=== PATIENT | female | born 1950 | race Caucasian/White ===

== ENCOUNTER 2019-04-26 13:47 | Emergency (ER) | payer OTHER ==
--- NOTE | 2019-04-26 14:10 | RAD REPORT ---
EXAM DESCRIPTION: CT - Ct Stroke Brain Wo Cont - 04/26/2019 2:03 pm CLINICAL HISTORY: Dizziness and ataxia COMPARISON: December 24, 2018 TECHNIQUE: Computed axial tomography of the head was obtained. All CT scans are performed using dose optimization technique as appropriate and may include automated exposure control or mA/KV adjustment according to patient size. FINDINGS: An intracranial bleed is not seen . The ventricles are normal in caliber. No extra-axial fluid collection is noted. Fluid within the sinuses/ mastoids is not seen. IMPRESSION: No acute intracranial abnormality is seen. If patient's symptoms persist MRI of the bra in would be recommended. Porsche of the emergency room was notified at 2:05 p.m. April 26, 2019
[2019-04-26 14:16] LABS: Absolute Lymphocytes (CBC) 1.5 K/uL (0.7-4.9); Basophils % 0.7 % (0-1.3); Hematocrit 50.4 % (36.0-45.0); Lymphocytes % 18.8 % (15.3-44.8); MPV 10.5 fL (7.6-11.3)
[2019-04-26] MEDS ORDERED: ONDANSETRON 4 MG/2 ML VIAL ONE (14:22)
[2019-04-26] MEDS ORDERED: DIAZEPAM 10 MG/2 ML INJ SYRINGE ONE (14:22)
[2019-04-26] MEDS ORDERED: MECLIZINE HCL 12.5 MG TAB ONE (14:22)
[2019-04-26] MEDS ORDERED: NA CHLORIDE 0.9% 500 ML ONE (14:22)
[2019-04-26] MEDS ORDERED: FAMOTIDINE 20 MG/2 ML VIAL IV ONE (14:23)
[2019-04-26 14:25] LABS: Protime INR 0.92
[2019-04-26 14:29] LABS: Potassium 3.6 mmol/L (3.5-5.1)
--- NOTE | 2019-04-26 14:33 | RAD REPORT ---
EXAM DESCRIPTION: Kerri Single View04/26/2019 2:26 pm CLINICAL HISTORY: Hypertension COMPARISON: none FINDINGS: The lungs appear clear of acute infiltrate. The heart is normal size Calcified granulomas present the left lung. Lungs are hyperaerated IMPRESSION: No acute abnormalities displayed
--- NOTE | 2019-04-26 15:57 | RAD REPORT ---
EXAM DESCRIPTION: MRI - Brain Wo Cont - 04/26/2019 3:22 pm CLINICAL HISTORY: Unsteady gait, severe dizziness, nausea and vomiting weakness, stroke-like symptom s COMPARISON: CT head same date TECHNIQUE: Sagittal T1-weighted images were obtained along with axial PD, heavily T2-weighted and T2 -FLAIR images. Axial DWI and ADC mapping sequences were also obtained along with coronal heavily T2-w eighted images. FINDINGS: No intracranial hemorrhage, mass or acute infarction. There is no edema or shift of midlin e structures. No extra-axial fluid collections. Bishop-matter/white matter junction is preserved. Signa l voids are seen as a normal finding in the major intracranial vessels. Ventricles are normal. Patien t has minimal atrophy and no measurable chronic ischemic change. No globe or orbital content abnormality. Left deviation of the nasal septum noted. Mastoid air cells and paranasal sinuses are clear. IMPRESSION: Negative non-contrast MRI of the Brain for acute or significant finding.
--- NOTE | 2019-04-26 17:13 | ER ---
Nurse's Notes [facility] Name: Isabel Yin Age: 68 yrs Sex: Female : 1950 Arrival Date: 04/26/2019 Time: 13:48 Bed 5 Private MD: Diagnosis: Aural vertigo, unspecified ear;Other peripheral vertigo, bilateral Presentation: 04/26 13:51 Presenting complaint: Severe dizziness, unsteady gait, and nausea z 1 hr. Vomiting in triage. Transition of care: patient was not received from another setting of care. Onset of symptoms was April 26, 2019 at 12:45. Risk Assessment: Do you want to hurt yourself or someone else? Patient reports no desire to harm self or others. Care prior to arrival: None. 13:51 Method Of Arrival: Wheelchair 13:51 Acuity: GABO 2 13:51 Initial Sepsis Screen: Does the patient meet any 2 criteria? No. Patient's initial sepsis screen is negative. Does the patient have a suspected source of infection? No. Patient's initial sepsis screen is negative. Triage Assessment: 14:10 General: Appears distressed, comfortable, slender, Behavior is cooperative, appropriate bp for age, agitated, anxious. Pain: Denies pain. EENT: No deficits noted. Neuro: Level of Consciousness is awake, alert, obeys commands, Oriented to person, place, time, situation, Appropriate for age Reports dizziness. Cardiovascular: No deficits noted. Respiratory: Airway is patent Respiratory effort is even, unlabored, Respiratory pattern is regular, symmetrical. GI: No signs and/or symptoms were reported involving the gastrointestinal system. : No signs and/or symptoms were reported regarding the genitourinary system. Derm: No deficits noted. Musculoskeletal: No deficits noted. Historical: - Allergies: 13:54 Sulfa (Sulfonamide Antibiotics); hb - Home Meds: 13:54 Aspirin Oral [Active]; hb 14:18 Aricept 5 mg Oral tab 1 tab once daily [Active]; lisinopril-hydrochlorothiazide 10-12.5 hb mg oral tab 1 tab once daily [Active]; - PMHx: 13:54 Hypertension; hb - Immunization history:: Adult Immunizations up to date. - Social history:: Smoking status: Patient uses tobacco products, smokes one pack cigarettes per day. - Ebola Screening: : No symptoms or risks identified at this time. Screenin:13 Abuse screen: Denies threats or abuse. Denies injuries from another. Nutritional bp screening: No deficits noted. Tuberculosis screening: No symptoms or risk factors identified. VAN Screening: Arm Drift: Patient shows no arm weakness. Visual Disturbance: No visual disturbance noted. Aphasia: No aphasia noted. Neglect: No neglect noted. Fall Risk No fall in past 12 months (0 pts). No secondary diagnosis (0 pts). IV access (20 points). Ambulatory Aid- None/Bed Rest/Nurse Assist (0 pts). Gait- Impaired (20 pts.). Mental Status- Oriented to own ability (0 pts). Total Hernandez Fall Scale indicates Low Risk Score (25-44 pts). Fall prevention measures have been instituted. Side Rails Up X 2 Placed close to Nursing Station Frequent Obs/Assesments occuring Family Present and informed to notify staff if they need to leave bedside As available Patient and Family Educated on Fall Prevention Program and strategies. 14:33 The patient has not been NPO before screening. The patient is alert, able to follow bp commands. The patient does not exhibit slurred or garbled speech The patient is not exhibiting difficulty speaking. The patient does not exhibit difficulty understanding words. The patient is able to swallow own secretions with no drooling or need for suction. Patient tolerated one teaspoon of water. No drooling, immediate coughing, gurgling, or clearing of the throat was noted. The patient tolerated 90mL of water. No drooling, immediate coughing, gurgling, or clearing of the throat was noted. The patient passed the bedside swallow screening. Oral medications may be given as ordered. Contact Physician for further diet orders. Assessment: 13:56 Reassessment: CODE STROKE CALLED, PT TO CT VIA WHEELCHAIR WITH KAYLAN GARCIA. hb 14:13 General: PT RETURNED FROM CT. bp 14:45 Reassessment: PT TO MRI. bp Vital Signs: 13:52 BP 184 / 82; Pulse 106; Resp 16; Temp 97.9; Pulse Ox 100% on R/A; Weight 48.99 kg; hb Height 5 ft. 4 in. (162.56 cm); Pain 0/10; 15:03 BP 143 / 74; Pulse 72; Resp 17; Pulse Ox 94% ; bp 16:18 BP 161 / 73; Pulse 64; Resp 16; Pulse Ox 99% on R/A; aj 13:52 Body Mass Index 18.54 (48.99 kg, 162.56 cm) hb NIH Stroke Scale Scores: 14:13 NIHSS Score: 0 bp ED Course: 13:48 Patient arrived in ED. as 13:52 Triage completed. hb 13:55 Arm band placed on. hb 13:59 Jeyson Kent MD is Attending Physician. kdr 14:01 Ricardo Boo, RADHA is Primary Nurse. bp 14:05 CT Stroke Brain w/o Contrast In Process Unspecified. EDMS 14:10 Inserted saline lock: 20 gauge in right forearm, using aseptic technique. Blood bp collected. 14:13 Patient has correct armband on for positive identification. Bed in low position. Call bp light in reach. Side rails up X2. Adult w/ patient. 14:22 X-ray completed. Portable x-ray completed in exam room. Patient tolerated procedure ml well. 14:25 Stroke CXR 1 View In Process Unspecified. EDMS 14:57 Patient moved to MRI via stretcher. em2 15:12 Brain Wo Cont In Process Unspecified. EDMS 17:20 No provider procedures requiring assistance completed. IV discontinued, intact, aj bleeding controlled, No redness/swelling at site. Pressure dressing applied. Administered Medications: 14:30 Drug: Meclizine 25 mg Route: PO; bp 14:30 Drug: Valium 5 mg Route: IVP; Site: right antecubital; bp 14:30 Drug: Pepcid 20 mg Route: IVP; Site: right antecubital; bp 14:30 Drug: Zofran 4 mg Route: IVP; Site: right antecubital; bp 14:30 Drug: NS 0.9% 500 ml Route: IV; Rate: bolus; Site: right antecubital; bp Outcome: 17:12 Discharge ordered by . kdr 17:20 Discharged to home ambulatory. aj 17:20 Condition: good 17:20 Discharge instructions given to patient, family, Instructed on discharge instructions, follow up and referral plans. medication usage, Demonstrated understanding of instructions, follow-up care, medications, Prescriptions given X 1. 17:21 Patient left the ED. aj NIH Stroke Scale - NIH Stroke Score Date: 04/26/2019 Time: 14:13 Total Score = 0 1a. Level of Consciousness (LOC) - 0(Alert) 1b. Level of Consciousness (LOC) (Year \T\ Age) - 0(Both) 1c. LOC Commands (Open \T\ Closes Eyes/Alteration Specialist) - 0(Both) 2. Best Gaze (Lateral Gaze Paresis) - 0(Normal) 3. Visual Field Loss - 0(No visual loss) 4. Facial Palsy - 0(Normal) 5a. Left Arm: Motor (10-second hold) - 0(No drift) 5b. Right Arm: Motor (10-second hold) - 0(No drift) 6a. Left Leg: Motor (5-second hold - always test supine) - 0(No drift) 6b. Right Leg: Motor (5-second hold - always test supine) - 0(No drift) 7. Limb Ataxia (finger/nose \T\ heel/allison - test with eyes open) - 0(Absent) 8. Sensory Loss (pinprick arms/legs/face) - 0(Normal) 9. Best Language: Aphasia (description/naming/reading) - 0(No aphasia) 10. Dysarthria (speech clarity - read or repeat words) - 0(Normal) 11. Extinction and Inattention (visual/tactile/auditory/spatial/personal) - 0(No abnormality) Initials: bp Signatures: Dispatcher [employer] Nayla Ford RN RN aj Rittger, Kevin, MD MD [facility] Ori, Kanwal Brooke, Natanael Jane [facility] Kaylan Calle RN RN Ricardo Boo RN RN bp Corrections: (The following items were deleted from the chart) 13:55 13:51 Presenting complaint: Severe dizziness and nausea z 1 hr. Vomiting in hb triage hb 13:55 13:51 Acuity: GABO 3 hb hb 14:18 13:54 Home Meds: Lisinopril Oral; hb hb
--- NOTE | 2019-04-26 17:13 | EDPHYS ---
Physician Documentation [facility] Name: Isabel Yin Age: 68 yrs Sex: Female : 1950 Arrival Date: 04/26/2019 Time: 13:48 Bed 5 Private MD: ED Physician Jeyson Kent HPI: 04/26 18:57 This 68 yrs old Female presents to ER via Wheelchair with complaints of kdr Dizziness. 18:57 The patient presents with dizziness, sense of spinning, vertigo. Onset: The kdr symptoms/episode began/occurred suddenly, just prior to arrival, this morning. Context: occurred at home, occurred while the patient was at rest. Modifying factors: The symptoms are alleviated by holding head still, the symptoms are aggravated by movement of head, standing up, changing position. Associated signs and symptoms: Pertinent positives: ataxia. Severity of symptoms: At their worst the symptoms were. The patient has not experienced similar symptoms in the past. The patient has not recently seen a physician. Historical: - Allergies: 13:54 Sulfa (Sulfonamide Antibiotics); hb - Home Meds: 13:54 Aspirin Oral [Active]; hb 14:18 Aricept 5 mg Oral tab 1 tab once daily [Active]; lisinopril-hydrochlorothiazide 10-12.5 hb mg oral tab 1 tab once daily [Active]; - PMHx: 13:54 Hypertension; hb - Immunization history:: Adult Immunizations up to date. - Social history:: Smoking status: Patient uses tobacco products, smokes one pack cigarettes per day. - Ebola Screening: : No symptoms or risks identified at this time. ROS: 18:57 Constitutional: Negative for fever, chills, and weight loss, Eyes: Negative for injury, kdr pain, redness, and discharge, Neck: Negative for injury, pain, and swelling, Cardiovascular: Negative for chest pain, palpitations, and edema, Respiratory: Negative for shortness of breath, cough, wheezing, and pleuritic chest pain, Abdomen/GI: Negative for abdominal pain, nausea, vomiting, diarrhea, and constipation, Back: Negative for injury and pain, : Negative for injury, bleeding, discharge, and swelling, MS/Extremity: Negative for injury and deformity, Skin: Negative for injury, rash, and discoloration, Psych: Negative for depression, anxiety, suicide ideation, homicidal ideation, and hallucinations, Allergy/Immunology: Negative for hives, rash, and allergies, Endocrine: Negative for neck swelling, polydipsia, polyuria, polyphagia, and marked weight changes, Hematologic/Lymphatic: Negative for swollen nodes, abnormal bleeding, and unusual bruising. 18:57 Neuro: Positive for dizziness, weakness. Exam: 18:57 Constitutional: This is a well developed, well nourished patient who is awake, alert, kdr and in moderate distress. Head/Face: Normocephalic, atraumatic. Eyes: Pupils equal round and reactive to light, extra-ocular motions intact. Lids and lashes normal. Conjunctiva and sclera are non-icteric and not injected. Cornea within normal limits. Periorbital areas with no swelling, redness, or edema. Neck: Trachea midline, no thyromegaly or masses palpated, and no cervical lymphadenopathy. Supple, full range of motion without nuchal rigidity, or vertebral point tenderness. No Meningismus. Chest/axilla: Normal chest wall appearance and motion. Nontender with no deformity. No lesions are appreciated. Cardiovascular: Regular rate and rhythm with a normal S1 and S2. No gallops, murmurs, or rubs. Normal PMI, no JVD. No pulse deficits. Respiratory: Lungs have equal breath sounds bilaterally, clear to auscultation and percussion. No rales, rhonchi or wheezes noted. No increased work of breathing, no retractions or nasal flaring. Abdomen/GI: Soft, non-tender, with normal bowel sounds. No distension or tympany. No guarding or rebound. No evidence of tenderness throughout. Back: No spinal tenderness. No costovertebral tenderness. Full range of motion. Skin: Warm, dry with normal turgor. Normal color with no rashes, no lesions, and no evidence of cellulitis. MS/ Extremity: Pulses equal, no cyanosis. Neurovascular intact. Full, normal range of motion. Psych: Awake, alert, with orientation to person, place and time. Behavior, mood, and affect are within normal limits. 18:57 Neuro: Orientation: Mentation: Memory: Cerebellar function: unable to test, the patient refuses to cooperate, Motor: Sensation: Vital Signs: 13:52 BP 184 / 82; Pulse 106; Resp 16; Temp 97.9; Pulse Ox 100% on R/A; Weight 48.99 kg; hb Height 5 ft. 4 in. (162.56 cm); Pain 0/10; 15:03 BP 143 / 74; Pulse 72; Resp 17; Pulse Ox 94% ; bp 16:18 BP 161 / 73; Pulse 64; Resp 16; Pulse Ox 99% on R/A; aj 13:52 Body Mass Index 18.54 (48.99 kg, 162.56 cm) hb NIH Stroke Scale Scores: 14:13 NIHSS Score: 0 bp MDM: 17:12 Patient medically screened. kdr 18:57 Data reviewed: vital signs, nurses notes, lab test result(s), radiologic studies. kdr Counseling: I had a detailed discussion with the patient and/or guardian regarding: the historical points, exam findings, and any diagnostic results supporting the discharge/admit diagnosis, lab results, radiology results, the need for outpatient follow up. Special discussion: I discussed with the patient/guardian in detail that at this point there is no indication for admission to the hospital. It is understood, however, that if the symptoms persist or worsen the patient needs to return immediately for re-evaluation. 04/26 13:59 Order name: Basic Metabolic Panel; Complete Time: 16: kdr 04/26 13:59 Order name: CBC with Diff; Complete Time: 16: kdr 04/26 13:59 Order name: Protime (+inr); Complete Time: 16: kdr 04/26 13:59 Order name: Ptt, Activated; Complete Time: 16: kdr 04/26 13:59 Order name: CT Stroke Brain w/o Contrast; Complete Time: 16: kdr 04/26 13:59 Order name: Stroke CXR 1 View; Complete Time: 16: kdr 04/26 14:11 Order name: Glucose, Ancillary Testing; Complete Time: 16:07 EDMS 04/26 13:59 Order name: EKG; Complete Time: 14:01 kdr 04/26 13:59 Order name: Accucheck; Complete Time: 14:11 kdr 04/26 13:59 Order name: Cardiac monitoring; Complete Time: 14:11 kdr 04/26 13:59 Order name: EKG - Nurse/Tech; Complete Time: 14:11 kdr 04/26 13:59 Order name: IV Saline Lock; Complete Time: 14:11 kdr 04/26 13:59 Order name: Labs collected and sent; Complete Time: 14:11 kdr 04/26 13:59 Order name: NPO; Complete Time: 14:11 kdr 08 13:59 Order name: O2 Per Protocol; Complete Time: 14:11 kdr 04/26 13:59 Order name: O2 Sat Monitoring; Complete Time: 14:11 kdr 04/26 15:12 Order name: Brain Wo Cont; Complete Time: 16:07 EDMS 04/26 13:59 Order name: Stroke Swallow Screen; Complete Time: 14:33 kdr 04/26 14:00 Order name: Accucheck; Complete Time: 14:08 hb 04/26 14:00 Order name: Cardiac monitoring; Complete Time: 14:08 hb 04/26 14:00 Order name: EKG - Nurse/Tech; Complete Time: 14:08 hb 04/26 14:00 Order name: IV Saline Lock; Complete Time: 14:08 hb 04/26 14:00 Order name: Labs collected and sent; Complete Time: 14:08 hb 04/26 14:00 Order name: NPO; Complete Time: 14:08 hb 04/26 14:00 Order name: O2 Per Protocol; Complete Time: 14:08 hb 04/26 14:00 Order name: O2 Sat Monitoring; Complete Time: 14:09 hb 04/26 14:00 Order name: Stroke Swallow Screen; Complete Time: 14:33 hb Administered Medications: 14:30 Drug: Meclizine 25 mg Route: PO; bp 14:30 Drug: Valium 5 mg Route: IVP; Site: right antecubital; bp 14:30 Drug: Pepcid 20 mg Route: IVP; Site: right antecubital; bp 14:30 Drug: Zofran 4 mg Route: IVP; Site: right antecubital; bp 14:30 Drug: NS 0.9% 500 ml Route: IV; Rate: bolus; Site: right antecubital; bp Disposition: 04/26/19 17:12 Discharged to Home. Impression: Aural vertigo, unspecified ear, Other peripheral vertigo, bilateral. - Condition is Stable. - Discharge Instructions: Dizziness, Vertigo, Dizziness, [id number]. - Prescriptions for Meclizine 25 mg Oral Tablet - take 1 tablet by ORAL route every 8 hours As needed; 30 tablet. - Medication Reconciliation Form, Thank You Letter form. - Follow up: Private Physician; When: 2 - 3 days; Reason: If symptoms return, Further diagnostic work-up, Recheck today's complaints, Continuance of care, Re-evaluation by your physician. - Problem is new. - Symptoms are resolved. NIH Stroke Scale - NIH Stroke Score Date: 04/26/2019 Time: 14:13 Total Score = 0 1a. Level of Consciousness (LOC) - 0(Alert) 1b. Level of Consciousness (LOC) (Year \T\ Age) - 0(Both) 1c. LOC Commands (Open \T\ Closes Eyes/Mill Platform Supervisor) - 0(Both) 2. Best Gaze (Lateral Gaze Paresis) - 0(Normal) 3. Visual Field Loss - 0(No visual loss) 4. Facial Palsy - 0(Normal) 5a. Left Arm: Motor (10-second hold) - 0(No drift) 5b. Right Arm: Motor (10-second hold) - 0(No drift) 6a. Left Leg: Motor (5-second hold - always test supine) - 0(No drift) 6b. Right Leg: Motor (5-second hold - always test supine) - 0(No drift) 7. Limb Ataxia (finger/nose \T\ heel/allison - test with eyes open) - 0(Absent) 8. Sensory Loss (pinprick arms/legs/face) - 0(Normal) 9. Best Language: Aphasia (description/naming/reading) - 0(No aphasia) 10. Dysarthria (speech clarity - read or repeat words) - 0(Normal) 11. Extinction and Inattention (visual/tactile/auditory/spatial/personal) - 0(No abnormality) Initials: bp Signatures: Dispatcher [employer] EDMS Nayla Mata RN RN aj Rittger, Kevin, MD MD [facility] Kaylan Calle RN RN hb Peltier, Brian, RN RN bp Corrections: (The following items were deleted from the chart) 14:05 14:01 CT-STROKE BRAIN W/O CONTRAST+CT.RAD.BRZ ordered. EDMS EDMS 14:06 14:01 Chest Single View+RAD.RAD.BRZ ordered. EDMS EDMS 14:17 14:01 BASIC METABOLIC PANEL+C.LAB.BRZ ordered. EDMS EDMS 14:17 14:01 CBC+H.LAB.BRZ ordered. EDMS EDMS 14:18 13:54 Home Meds: Lisinopril Oral; hb hb 14:18 14:01 PROTIME (+INR)+COAG.LAB.BRZ ordered. EDMS EDMS 14:18 14:01 PTT, ACTIVATED+COAG.LAB.BRZ ordered. EDSC EDMS 15:11 14:12 MR STROKE PROTOCOL+MRI.RAD.BRZ ordered. EDSC EDSC 17:21 17:12 04/26/2019 17:12 Discharged to Home. Impression: Aural vertigo, aj unspecified ear; Other peripheral vertigo, bilateral. Condition is Stable. Forms are Medication Reconciliation Form, Thank You Letter, Antibiotic Education, Prescription Opioid Use. Follow up: Private Physician; When: 2 - 3 days; Reason: If symptoms return, Further diagnostic work-up, Recheck today's complaints, Continuance of care, Re-evaluation by your physician. Problem is new. Symptoms are resolved. kdr
--- NOTE | 2019-04-27 06:49 | EKG ---
Test Date: 2019-04-26 Test Time: 14:08:28 Mogul Operator: ZACH MEASUREMENT RESULTS: Intervals: Rate: 80 IL: 130 QRSD: 86 QT: 406 QTc: 468 [place]: P: 84 IL: 130 QRS: 6 T: 76 INTERPRETIVE STATEMENTS: Normal sinus rhythm Possible Left atrial enlargement Borderline ECG No previous ECG available for comparison Electronically Signed On 04-27-19 06:46:12 CDT by Milton Jimenes
== END 2019-04-26 17:21 | disposition home or self-care (01) ==
LOC: ER 13:47
DX: H81.319 Aural vertigo, unspecified ear (principal); H81.393 Other peripheral vertigo, bilateral; I10 Essential (primary) hypertension; F17.210 Nicotine dependence, cigarettes, uncomplicated; Z88.2 Allergy status to sulfonamides; Z79.82 Long term (current) use of aspirin
CPT/HCPCS: 93005; 85025; 80048; 36415; 85610; 82962; 85730; 70450; 71045; 70551; 96375; 96374; 99284; J3360; J2405

== ENCOUNTER 2025-04-24 23:54 | Inpatient (IN) | payer OTHER ==
--- OUTSIDE RECORDS SUMMARY | 2025-04-24 23:58 | XMS REPORT | Continuity of Care Document ---
Author Name Unknown Address [address] [facility] [address] [place] [address] Organization [facility] Address [address] [facility] [address] [place] [address] Care Team Providers Care Crusher Screen Repairer Name Role Phone Unavailable Unavailable Unavailable Problems Condition Name Condition Details Condition Category Status Onset Date Resolution Date Last Treatment Date Treating Clinician Comments Source Asthma (disorder) Asthma (disorder) Resolved Problem 12/28/2019 [facility] Problem Resolve d 2019-12-28 23:06:34 Hadley Pina Hypertensi ve disorder, systemic arterial (disorder) Hypertensi ve disorder, systemic arterial (disorder) Resolved Problem 12/28/2019 [facility] Problem Resolve d 2019-12-28 23:06:34 Hadley Pina Depressive disorder (disorder) Depressive disorder (disorder) Active Problem 12/28/2019 [facility] Problem Active 2019-12-28 23:06:34 Hadley Pina Memory impairment (finding) Memory impairment (finding) Active Problem 12/28/2019 [facility] Problem Active 2019-12-28 23:06:34 Hadley Pina Allergies, Adverse Reactions, Alerts Allergy Name Allergy Type Status Severity Reaction(s) Onset Date Inactive Date Treating Clinician Comments Source sulfa drugs sulfa drugs Active Hadley Pina Social History Smoking Status Start Date Stop Date Source Social History 2019-08-19 15:15:38 Priyanka Pitts Medications Ordered Medication Name Filled Medication Name Start Date Stop Date Current Medication? Ordering Clinician Indication Dosage Frequency Signature (SIG) Comments Components Source Sertraline 25 MG Oral Tablet [Zoloft] 09-28 22:32: 25 Yes 25 mg = 1 tab, PO, Daily, # 30 tab, 6 Refill(s), Pharmacy: [facility] [id number] Hadley Pina donepezil 10 mg oral tablet 2018-09 15:18: 00 Yes 10 mg = 1 tab, PO, Bedtime, # 30 tab, 3 Refill(s), Pharmacy: [facility] [id number] Hadley Pina Sertraline 25 MG Oral Tablet [Zoloft] 2018-09 15:18: 00 Yes 25 mg = 1 tab, PO, Daily, # 30 tab, 1 Refill(s), Pharmacy: [facility] [id number] Hadley Pina Lisinopril 05-31 16:39: 00 Yes 12.5 mg, PO, Daily, 0 Refill(s) Hadley Pina donepezil 5 mg oral tablet 05-31 16:39: 00 Yes 5 mg = 1 tab, PO, Daily, # 30 tab, 0 Refill(s) Hadley Pina Vital Signs Vital Name Observation Time Observation Value Comments S [facility] Rate 2019-08-19 15:14:00 [facility] [place] [facility] 2019-08-19 [facility]14[facility] 2019-08-19 15:14:00 162.56 cm [facility] Weight 2019-08-19 15:14:00 [facility] BMI Calculated 2019-08-19 15:14:00 [facility] Systolic (mm Hg) 2019-08-19 15:14:00 [facility] Diastolic (mm Hg) 2019-08-19 15:14:00 [facility] [place] Systolic (mm Hg) 2019-07-10 14:27:00 [facility] [place] Diastolic (mm Hg) 2019-07-10 14:27:00 [facility] [place] Heart Rate 2019-07-10 14:27:00 [facility] Respitory Rate 2019-07-10 14:27:00 [facility] Height 2019-07-10 14:27:00 162.56 cm [facility] Weight 2019-07-10 14:27:00 [facility] BMI Calculated 2019-07-10 14:27:00 [facility] Systolic (mm Hg) 2019-05-31 16:30:00 [facility] Diastolic (mm Hg) 2019-05-31 16:30:00 [facility] Heart Rate 2019-05-31 16:30:00 [facility] [place] Respitory Rate 2019-05-31 16:30:00 [facility] [place] Height 2019-05-31 16:30:00 162.56 cm [facility] Weight 2019-05-31 16:30:00 [facility] BMI Calculated 2019-05-31 16:30:00 M manp[facility]ina
[2025-04-25] MEDS ORDERED: ONDANSETRON 4 MG/2 ML VIAL ONE ×2 (00:13→01:46)
[2025-04-25] MEDS ORDERED: METHYLPREDNISOLONE 125 MG INJ ONE (00:13)
[2025-04-25] MEDS ORDERED: LEVALBUTEROL 1.25 MG/3 ML NEB ONE (00:13)
[2025-04-25 00:52] LABS: Absolute Lymphocytes (CBC) 1.3 K/uL (0.7-4.9); Hematocrit 45.6 % (36.0-45.0); Hemoglobin 15.7 g/dL (12.0-15.0); MCH 34.2 pg (27.0-35.0); MCHC 34.4 g/dL (32.0-36.0); MCV 99.2 fL (80-100); MPV 11.5 fL (7.6-11.3); Nucleated RBC Absolute Count 0.0 (0-0); Nucleated Red Blood Cells % 0.0 % (0-0); RBC Red Blood Cell Count 4.59 M/uL (3.86-4.86); White Blood Count 12.00 thou/uL (4.3-10.9)
[2025-04-25 00:54] LABS: PT Prothrombin Time 11.1 SECONDS (10-13.0); PTT, Activated Partial Thromb 28.2 SECONDS (27.2-37.4); Protime INR 0.98
[2025-04-25 01:09] LABS: Influenza A Ag Negative; Influenza B Ag Negative; SARS-CoV-2 Antigen Rapid Res Negative (Negative)
[2025-04-25 01:10] LABS: ALT/SGPT 19.0 U/L (13-56); AST/SGOT 16.0 U/L (15-37); Albumin 3.5 g/dL (3.4-5.0); Albumin/Globulin Ratio 0.9 (1.1-1.8); Alkaline Phosphatase 134.0 U/L (45-117); Anion Gap 12.5 mEq/L (5.0-15.0); BUN Blood Urea Nitrogen 26.0 mg/dL (7-18); Globulin 3.8 g/dL (2.3-3.5); Glucose Level 215.0 mg/dL (74-106); NT PRO-BNP 5949.0 pg/mL (<450); Potassium 3.5 mEq/L (3.5-5.1); Troponin High Sensitivity 11.5 pg/mL (<58.9)
[2025-04-25] MEDS ORDERED: CEFTRIAXONE 1000 MG/VIAL ONE (01:36)
[2025-04-25] MEDS ORDERED: AZITHROMYCIN 500 MG INJ IVPB ONE (01:36)
[2025-04-25] MEDS ORDERED: NA CHLORIDE 0.9% 250 ML ONE (01:37)
[2025-04-25] MEDS ORDERED: NA CHLORIDE 0.9% 50 ML ONE (01:37)
[2025-04-25] MEDS ORDERED: FUROSEMIDE 20 MG/ 2ML VIAL ONE ×2 (02:31→08:16)
--- NOTE | 2025-04-25 02:39 | EDPHYS ---
Physician Documentation [facility] Name: Isabel Yin Age: 74 yrs Sex: Female : 1950 Arrival Date: 04/24/2025 Time: 23:54 Bed 7 Private MD: ED Physician Maxim Elder HPI: 04/25 00:15 This 74 yrs old Female presents to ER via Wheelchair with complaints of Shortness Of rn Breath. 00:15 Patient presents with shortness of breath for the last few hours. Patient is active rn smoker. Family member also reports patient has trouble swallowing and may or may not have had esophageal stricture in the past. Patient has basically for years lived off of [facility]. No fever or chills. No hemoptysis. Family member reports bad cough and is gagging her.. Historical: - Allergies: 00:06 Sulfa (Sulfonamide Antibiotics); bm8 - Home Meds: 00:06 Aricept 5 mg Oral tab 1 tab once daily [Active]; lisinopril-hydrochlorothiazide 10-12.5 bm8 mg Oral tab 1 tab once daily [Active]; Aspirin Oral [Active]; - PMHx: 00:06 Hypertension; bm8 - PSHx: 00:06 None; bm8 - Immunization history:: Adult Immunizations unknown. - Infectious Disease History:: Denies. - Social history:: Smoking status: Patient reports the use of cigarette tobacco products, smokes one pack cigarettes per day. Patient uses alcohol, on a daily basis. - Family history:: not pertinent. - Hospitalizations: : No recent hospitalization is reported. ROS: 00:15 Constitutional: Negative for fever, chills, and weight loss, Neck: Negative for injury, rn pain, and swelling, Cardiovascular: Negative for chest pain, palpitations, and edema, Respiratory: Positive for cough and shortness of breath Abdomen/GI: Positive for nausea during coughing spells MS/Extremity: Negative for injury and deformity, Neuro: Negative for headache, weakness, numbness, tingling, and seizure, Exam: 00:15 Constitutional: This is a well developed, well nourished patient who is awake, alert, rn appears anxious and hyperventilating Head/Face: Normocephalic, atraumatic. ENT: Dry mucous membranes Cardiovascular: Regular rate and rhythm. No pulse deficits. Respiratory: Moderate tachypnea, no retractions Skin: No cyanosis Neuro: Awake and alert, GCS 15 04:18 ECG was reviewed by the Attending Physician. rn Vital Signs: 00:04 BP 141 / 78; Pulse 93; Resp 30; Temp 97.8; Pulse Ox 100% ; Weight 58.06 kg; Height 5 bm8 ft. 3 in. ; Pain 0/10; 00:36 BP 130 / 65; Pulse 88; Resp 19; Temp 97.8; Pulse Ox 99% ; Pain 0/10; bm8 01:53 BP 136 / 49; Pulse 93; Resp 20; Temp 97.8; Pulse Ox 98% ; Pain 0/10; bm8 03:55 BP 113 / 56; Pulse 90; Resp 16; Temp 97.8; Pulse Ox 99% on 2 lpm NC; Pain 0/10; bm8 00:04 Body Mass Index 22.67 (58.06 kg, 160.02 cm) bm8 00:04 Pain Scale: Adult bm8 00:36 Pain Scale: Adult bm8 01:53 Pain Scale: Adult bm8 03:55 Pain Scale: Adult bm8 Vera Coma Score: 00:28 Eye Response: spontaneous(4). Motor Response: obeys commands(6). Verbal Response: bm8 oriented(5). Total: 15. 01:53 Eye Response: spontaneous(4). Motor Response: obeys commands(6). Verbal Response: bm8 oriented(5). Total: 15. 03:55 Eye Response: spontaneous(4). Motor Response: obeys commands(6). Verbal Response: bm8 oriented(5). Total: 15. MDM: 04/24 23:57 Medical Screening Exam initiated rn 04/25 01:45 ED course: Patient with elevated lactic acid. Patient will not receive 30 mL/kg bolus rn at this time due to concerns of volume overload on chest x-ray and elevated BNP. Patient is actually hypertensive. Will withhold all fluids at this time unless included in other medications.. 02:36 Differential diagnosis: Anemia Anxiety Reaction Syncope, near syncope, TIA, rn vertebrobasilar syndrome. Data reviewed: vital signs, nurses notes, lab test result(s), EKG, radiologic studies, CT scan, and as a result, I will admit patient. Consideration of Admission/Observation Patient was admitted/placed on observation. Escalation of care including admission/observation considered. Counseling: I had a detailed discussion with the patient and/or guardian regarding the historical points, exam findings, and any diagnostic results supporting the discharge/admit diagnosis, lab results, radiology results, the need for further work-up and treatment in the hospital. ED course: Patient with pulmonary edema, blood pressure is a little soft, only gave 10 mg of Lasix IV currently due to blood pressure and patient is improving in terms of respiratory distress. Patient is currently resting comfortably. X-ray images appear more like pulmonary edema and not infection. No fluids given at this time due to pulmonary edema and volume overload.. 04/25 00:05 Order name: BNP; Complete Time: : rn 04/25 00:05 Order name: Blood Culture Adult (2) rn 04/25 00:05 Order name: CBC with Diff; Complete Time: : rn 04/25 00:05 Order name: CMP; Complete Time: rn 04/25 00:05 Order name: Lactate w/ 2H reflex if indic.; Complete Time: rn 04/25 00:05 Order name: Protime (+inr); Complete Time: : rn 04/25 00:05 Order name: Ptt, Activated; Complete Time: : rn 04/25 00:05 Order name: Troponin HS; Complete Time: : rn 04/25 00:05 Order name: COVID-19 Ag + Flu A+B Ag; Complete Time: : rn 04/25 01:36 Order name: Ghost Lactate-NO COLLECT Timer; Complete Time: 06:53 EDMS 04/25 02:54 Order name: D-Dimer EDMS 04/25 03:46 Order name: ABG Arterial Blood Gas; Complete Time: 06:53 EDMS 04/25 04:41 Order name: Lactate Sepsis 2 HR Follow-up; Complete Time: 06:53 EDMS 04/25 05:39 Order name: Lactic Dehydrogenase; Complete Time: 06:53 EDMS 04/25 09:24 Order name: CBC with Automated Diff EDMS 04/25 00:05 Order name: Chest Single View XRAY rn 04/25 03:38 Order name: Echo with Doppler EDMS 04/25 03:38 Order name: Echo with Doppler EDMS 04/25 04:09 Order name: ARTERIAL BLOOD GAS EDNY 04/25 00:05 Order name: Cardiac monitoring; Complete Time: 00: rn 04/25 00:05 Order name: EKG - Nurse/Tech; Complete Time: 00: rn 04/25 00:05 Order name: IV Saline Lock - Large Bore; Complete Time: 00: rn 04/25 00:05 Order name: Labs collected and sent; Complete Time: 00: rn 04/25 00:05 Order name: O2 Per Protocol; Complete Time: 00: rn 04/25 00:05 Order name: O2 Sat Monitoring; Complete Time: 00: rn 04/25 00:05 Order name: Vital Signs; Complete Time: rn EC:18 Rate is 90 beats/min. Rhythm is regular. QRS Olema is Normal. AL interval is normal. QRS rn interval is normal. QT interval is normal. No Q waves. T waves are Normal. ST Segment is depressed in leads I, V5, V6. Clinical impression: NSR w/ Non-specific ST/T Changes. Interpreted by me. Reviewed by me. Administered Medications: 00:27 Drug: Levalbuterol Inhalation 1.25 mg Inhalation once Route: Inhalation; bm8 00:37 Follow up: Response: No adverse reaction bm8 00:27 Drug: Levalbuterol Inhalation 1.25 mg Inhalation once Route: Inhalation; bm8 00:37 Follow up: Response: No adverse reaction bm8 00:27 Drug: MethylPrednisoLONE IVP 125 mg IVP once Route: IVP; Site: right wrist; bm8 00:37 Follow up: Response: No adverse reaction bm8 00:27 Drug: Ondansetron IVP 4 mg IVP once; over 2 minutes Route: IVP; Site: right wrist; bm8 00:37 Follow up: Response: No adverse reaction bm8 01:51 Drug: Rocephin IV 1 grams IV at calculated rate once; Given slow IV push per pharmacy bm8 instructions Route: IV; Rate: calculated rate; Site: right wrist; 03:56 Follow up: Response: No adverse reaction; IV Status: Completed infusion bm8 01:54 Drug: Ondansetron IVP 4 mg IVP once; over 2 minutes Route: IVP; Site: right wrist; bm8 03:56 Follow up: Response: No adverse reaction bm8 02:19 Drug: Zithromax IVPB 500 mg IVPB once over 1 hrs; mix in 250 mL NS Route: IVPB; Infused bm8 Over: 1 hrs; Site: right wrist; 03:18 Follow up: Response: No adverse reaction; IV Status: Completed infusion; IV Intake: al5 250ml 02:27 CANCELLED (Duplicate Order): [id number] mg IVP once; give over 2 minutes rn 02:44 Drug: Furosemide IVP 10 mg IVP once; give over 2 minutes Route: IVP; Site: right wrist; al5 03:56 Follow up: Response: No adverse reaction bm8 Disposition Summary: 04/25/25 02:38 Hospitalization Ordered Notes: Hospitalization Status: Inpatient Admission rn Provider: Nilton Jacob rn Condition: Stable rn Problem: new rn Symptoms: have improved rn Bed/Room Type: Standard rn Location: Telemetry/MedSur (Inpatient)(04/25/25 08:19) [facility] Room Assignment: [facility](04/25/25 08:19) [facility] Diagnosis - Dyspnea, unspecified rn - Acute pulmonary edema rn Forms: - Medication Reconciliation Form rn - SBAR form rn - Leadership Thank You Letter rn progressive care time excluding procedures: 02:36 Critical care time: Bedside Care: 30 minutes, Consultation: 5 minutes. Total time: 35 rn minutes Signatures: Dispatcher [employer] Maxim Cruz MD MD rn Garcia, Cindy, RN RN Jose Rafael Ríos RN RN ja1 Roberth Bernal, RN RN bm8 Nayla Talbot RN RN al5 Corrections: (The following items were deleted from the chart) 00:06 00:06 PROBNP+C.LAB.BRZ ordered. EDNY EDMS 00:06 00:06 BLOOD CULTURE*+BA.LAB.BRZ ordered. EDNY EDMS 00:06 00:06 CBC+H.LAB.BRZ ordered. EDNY EDMS 00:06 00:06 COMPREHENSIVE METABOLIC PANEL+C.LAB.BRZ ordered. EDNY EDMS 00:06 00:06 LACTATE+C.LAB.BRZ ordered. EDNY EDMS 00:06 00:06 PROTIME (+INR)+COAG.LAB.BRZ ordered. EDNY EDMS 00:06 00:06 PTT, ACTIVATED+COAG.LAB.BRZ ordered. EDMS EDMS 00:06 00:06 Troponin High Sensitivity+C.LAB.BRZ ordered. EDMS EDMS 00:06 00:06 COVID-19 Ag + Flu A+B Ag+I.LAB.BRZ ordered. EDMS EDMS 00:06 00:06 Chest Single View+RAD.RAD.BRZ ordered. EDMS EDMS 02:27 02:27 Furosemide IVP 20 mg IVP once; give over 2 minutes ordered. matilda grey 03:12 00:05 Accucheck ordered. matilda bm8 03:22 02:38 Telemetry/MedSurg (Inpatient) rn cg 03:22 02:38 rn jan 05:29 02:36 Critical Care: rn matilda 08:19 03:22 [facility] ER HOLD ja1 08: 03:22 ERHOLD- ja1
--- NOTE | 2025-04-25 02:39 | ER ---
Nurse's Notes [facility] Name: Isabel Yin Age: 74 yrs Sex: Female : 1950 Arrival Date: 04/24/2025 Time: 23:54 Bed 7 Private MD: Diagnosis: Dyspnea, unspecified;Acute pulmonary edema Presentation: 04/25 00:04 Chief complaint: Patient's son or daughter states: She started having shortness of bm8 breath that began around 2230 while we were out n the porch. Coronavirus screen: At this time, the client does not indicate any symptoms associated with coronavirus-19. Ebola Screen: Patient negative for fever greater than or equal to 101.5 degrees Fahrenheit, and additional compatible Ebola Virus Disease symptoms Patient denies exposure to infectious person. Patient denies travel to an Ebola-affected area in the 21 days before illness onset. No symptoms or risks identified at this time. Initial Sepsis Screen: Does the patient meet any 2 criteria? RR > 20 per min. Does the patient have a suspected source of infection? No. Patient's initial sepsis screen is negative. Risk Assessment: Do you want to hurt yourself or someone else? Patient reports no desire to harm self or others. Onset of symptoms was April 24, 2025 at 22:30. 00:04 Method Of Arrival: Wheelchair bm8 00:04 Acuity: GABO 2 bm8 Triage Assessment: 00:06 General: Appears distressed, uncomfortable, Behavior is cooperative, appropriate for bm8 age. Pain: Denies pain. EENT: No deficits noted. No signs and/or symptoms were reported regarding the EENT system. Neuro: No deficits noted. Level of Consciousness is awake, alert, obeys commands, Oriented to person, place, situation. Cardiovascular: Denies chest pain, Heart tones S1 S2 present Capillary refill < 3 seconds in bilateral fingers. Respiratory: Reports shortness of breath at rest Airway is patent Respiratory effort is even, unlabored, Respiratory pattern is hyperventilation Breath sounds are clear bilaterally. Onset: The symptoms/episode began/occurred gradually, the patient has mild shortness of breath. GI: No deficits noted. : No deficits noted. No signs and/or symptoms were reported regarding the genitourinary system. Derm: No signs and/or symptoms reported regarding the dermatologic system. Musculoskeletal: No signs and/or symptoms reported regarding the musculoskeletal system. Historical: - Allergies: 00:06 Sulfa (Sulfonamide Antibiotics); bm8 - Home Meds: 00:06 Aricept 5 mg Oral tab 1 tab once daily [Active]; lisinopril-hydrochlorothiazide 10-12.5 bm8 mg Oral tab 1 tab once daily [Active]; Aspirin Oral [Active]; - PMHx: 00:06 Hypertension; bm8 - PSHx: 00:06 None; bm8 - Immunization history:: Adult Immunizations unknown. - Infectious Disease History:: Denies. - Social history:: Smoking status: Patient reports the use of cigarette tobacco products, smokes one pack cigarettes per day. Patient uses alcohol, on a daily basis. - Family history:: not pertinent. - Hospitalizations: : No recent hospitalization is reported. Screenin:28 [facility] ED Fall Risk Assessment (Adult) History of falling in the last 3 months, bm8 including since admission No falls in past 3 months (0 pts) Confusion or Disorientation No (0 pts) Intoxicated or Sedated No (0 pts) Impaired Gait No (0 pts) Mobility Assist Device Used No (0 pt) Altered Elimination No (0 pt) Score/Fall Risk Level 0 - 2 = Low Risk Oriented to surroundings, Maintained a safe environment, Educated pt \T\ family on fall prevention, incl call for assistance when getting out of bed, Assessed \T\ reinforced patient's understanding of fall precautions, Hourly rounding (assess needs \T\ fall precautionary measures) done, Used ambulatory aids as needed (educated on \T\ assisted with), Used gait belt as appropriate. Abuse screen: Denies threats or abuse. Nutritional screening: No deficits noted. Tuberculosis screening: No symptoms or risk factors identified. Assessment: 00:28 Reassessment: see triage assessment. bm8 00:36 Reassessment: Patient appears in no apparent distress at this time. Patient and/or bm8 family updated on plan of care and expected duration. Pain level reassessed. Patient is alert, oriented x 3, equal unlabored respirations, skin warm/dry/pink. Patient states feeling better. General: Appears in no apparent distress. comfortable, Behavior is calm, cooperative, appropriate for age. Pain: Denies pain. Cardiovascular: Heart tones S1 S2 present Capillary refill < 3 seconds in bilateral fingers Patient's skin is warm and dry. Rhythm is sinus rhythm. Respiratory: Airway is patent Respiratory effort is even, unlabored, Respiratory pattern is regular, symmetrical, Breath sounds are clear bilaterally. GI: No deficits noted. : No deficits noted. EENT: No deficits noted. Derm: No deficits noted. Musculoskeletal: No deficits noted. 01:53 Reassessment: Patient appears in no apparent distress at this time. No changes from [facility] previously documented assessment. Patient and/or family updated on plan of care and expected duration. Pain level reassessed. Patient is alert, oriented x 3, equal unlabored respirations, skin warm/dry/pink. pt stated that she was feeling very nauseous provider informed and new orders recieved. 03:55 Reassessment: Patient appears in no apparent distress at this time. Patient and/or bm8 family updated on plan of care and expected duration. Pain level reassessed. Patient denies pain at this time. Patient states feeling better. Vital Signs: 00:04 BP 141 / 78; Pulse 93; Resp 30; Temp 97.8; Pulse Ox 100% ; Weight 58.06 kg; Height 5 bm8 ft. 3 in. ; Pain 0/10; 00:36 BP 130 / 65; Pulse 88; Resp 19; Temp 97.8; Pulse Ox 99% ; Pain 0/10; bm8 01:53 BP 136 / 49; Pulse 93; Resp 20; Temp 97.8; Pulse Ox 98% ; Pain 0/10; bm8 03:55 BP 113 / 56; Pulse 90; Resp 16; Temp 97.8; Pulse Ox 99% on 2 lpm NC; Pain 0/10; bm8 00:04 Body Mass Index 22.67 (58.06 kg, 160.02 cm) bm8 00:04 Pain Scale: Adult bm8 00:36 Pain Scale: Adult bm8 01:53 Pain Scale: Adult bm8 03:55 Pain Scale: Adult bm8 Yantis Coma Score: 00:28 Eye Response: spontaneous(4). Motor Response: obeys commands(6). Verbal Response: bm8 oriented(5). Total: 15. 01:53 Eye Response: spontaneous(4). Motor Response: obeys commands(6). Verbal Response: bm8 oriented(5). Total: 15. 03:55 Eye Response: spontaneous(4). Motor Response: obeys commands(6). Verbal Response: bm8 oriented(5). Total: 15. ED Course: 04/24 23:56 Patient arrived in ED. im 23:57 Maxim Elder MD is Attending Physician. rn 04/25 00:04 Roberth Bernal, RN is Primary Nurse. bm8 00:06 Triage completed. bm8 00:06 Arm band placed on right wrist. bm8 00:28 Patient has correct armband on for positive identification. Bed in low position. Call bm8 light in reach. Side rails up X 1. Client placed on continuous cardiac and pulse oximetry monitoring. NIBP monitoring applied. manager intranet on. Pulse ox on. NIBP on. Door closed. Noise minimized. Warm blanket given. Pillow given. Verbal reassurance given. 00:28 No provider procedures requiring assistance completed. Initial lab(s) drawn, by ky, bm8 sent to lab. Inserted saline lock: 22 gauge in right wrist, using aseptic technique. Blood collected. Flushed with 10 mL NS. Oxygen administered via a nebulizer mask. Response to oxygen therapy: symptoms remain unchanged. 00:34 Chest Single View XRAY In Process Unspecified. EDMS 02:38 Nilton Jacob, RN is Hospitalizing Provider. rn 03:55 Provided Education on: need for admission. bm8 03:55 Patient admitted, IV remains in place. bm8 Administered Medications: 00:27 Drug: Levalbuterol Inhalation 1.25 mg Inhalation once Route: Inhalation; bm8 00:37 Follow up: Response: No adverse reaction bm8 00:27 Drug: Levalbuterol Inhalation 1.25 mg Inhalation once Route: Inhalation; bm8 00:37 Follow up: Response: No adverse reaction bm8 00:27 Drug: MethylPrednisoLONE IVP 125 mg IVP once Route: IVP; Site: right wrist; bm8 00:37 Follow up: Response: No adverse reaction bm8 00:27 Drug: Ondansetron IVP 4 mg IVP once; over 2 minutes Route: IVP; Site: right wrist; bm8 00:37 Follow up: Response: No adverse reaction bm8 01:51 Drug: Rocephin IV 1 grams IV at calculated rate once; Given slow IV push per pharmacy bm8 instructions Route: IV; Rate: calculated rate; Site: right wrist; 03:56 Follow up: Response: No adverse reaction; IV Status: Completed infusion bm8 01:54 Drug: Ondansetron IVP 4 mg IVP once; over 2 minutes Route: IVP; Site: right wrist; bm8 03:56 Follow up: Response: No adverse reaction bm8 02:19 Drug: Zithromax IVPB 500 mg IVPB once over 1 hrs; mix in 250 mL NS Route: IVPB; Infused bm8 Over: 1 hrs; Site: right wrist; 03:18 Follow up: Response: No adverse reaction; IV Status: Completed infusion; IV Intake: al5 250ml 02:27 CANCELLED (Duplicate Order): [id number] mg IVP once; give over 2 minutes rn 02:44 Drug: Furosemide IVP 10 mg IVP once; give over 2 minutes Route: IVP; Site: right wrist; al5 03:56 Follow up: Response: No adverse reaction bm8 Medication: 00:28 VIS not applicable for this client. bm8 Intake: 03:18 IV: 250ml; Total: 250ml. al5 Outcome: 02:38 Decision to Hospitalize by Provider. rn 03:55 Admitted to ER Hold. Please see [facility] for further documentation. bm8 03:55 Condition: stable 03:55 Instructed on follow up and referral plans. the need for admit, Demonstrated understanding of instructions, follow-up care, medications, 09:30 Patient left the ED. kc6 Signatures: Dispatcher [employer] EDMS Maxim Elder MD MD rn Campbell, Kaitlyn, RN RN kc6 Henrietta Bruno Brad RN RN bm8 Nayla Talbot RN RN al5 Corrections: (The following items were deleted from the chart) 01:52 01:51 Rocephin IV 1 grams IV at calculated rate in left forearm bm8 bm8
--- NOTE | 2025-04-25 03:48 | P.HP ---
Certification for Inpatient Patient admitted to: Inpatient With expected LOS: >2 Midnights Patient will require the following post-hospital care: None Practitioner: I am a practitioner with admitting privileges, knowledge of patient current condition, hospital course, and medical plan of care. Services: Services provided to patient in accordance with Admission requirements found in Title 42 Section 412.3 of the Code of Federal Regulations Patient History Date of Service: 04/25/25 Reason for admission: New Onset CHF, SEPSIS 2/2 CAP/AHRF, History of Present Illness: Patient is a 74-year-old female with past medical history of Alzheimer's disease, hypertension, nicotine use disorder, currently still smoking cigarettes, alcohol use disorder, brought to the ER by her due to shortness of breath, nonproductive cough, and anxiety. According to patient present at bedside, he states this evening patient became very anxious with associated shortness of breath, and nonproductive cough. He states when patient is not anxious, her respiration is even and nonlabored, but when she becomes anxious, then she starts having problem breathing, which then prompted him to bring the patient to the ER. States upon arrival to ER, patient room air oxygen was 96%-97%. Patient was then placed on 2 L of oxygen supplement. On admission assessment, patient denies of any chest pain or shortness of breath at this time, patient appears very tremulous at times, and relax at times. Patient respirations even and nonlabored on 2 L oxygen satting 100%. Patient is a very poor historian, states about 5 months ago patient was checked by one of her doctor, who found that patient has some esophageal " either spasm or stricture", but states the doctor told him that nothing can be done about it. He states from then patient has just been drinking only boost mixed with some whiskey alcohol. He states patient is just scared to eat regular food. When inquired from the why he has to dilute patient boost with alcohol, he became very defensive, states they have been drinking alcohol for so many years. Patient is not able to provide her past medical history, most of the history provided by the . Patient denies of any fever or chills at home. Denies any previous history of CHF. Patient workup in the ER concerning for new onset CHF versus community-acquired pneumonia. Patient BNP 5949, WBC 12 with a left shift, initial lactic acid 5.0, normotensive blood pressure at this time. Course in ER: (1) Chest d-sbo-zqcazuqrkz- (A) enlarged heart with moderate to marked congestive heart failure. Bilateral interstitial infiltrates. Granulomatous disease. Allergies Sulfa (Sulfonamide Antibiotics) Allergy (Intermediate, Verified 04/25/25 04:46) Hives/Rash Home medications list reviewed: No - Past Medical/Surgical History -: Nicotine use disorder, daily cigarette smoker. -: Alcohol use disorder. -: Essential hypertension. -: Alzheimer's disease. Past Surgical History: Reviewed- Non-Contributory - Family History Family History: Reviewed- Non-Contributory - Social History Smoking Status: Current every day smoker Patient receptive to therapy: No Alcohol use: Yes CD- Drugs: No Caffeine use: No Place of Residence: Home Review of Systems 10-point ROS is otherwise unremarkable General: Other (Occasional anxiety.) Respiratory: Cough (Nonproductive.) Neurological: Other (History of Alzheimer's.) Physical Examination - Physical Exam General: Alert, Oriented x2, Cooperative HEENT: Atraumatic, Normocephalic, PERRLA, Other (Dry mucous membrane.), Sclerae nonicteric Neck: Supple, No LAD, Without JVD or thyroid abnormality Respiratory: Other (Scattered coarse crackles.) Cardiovascular: No edema, Regular rate/rhythm, Normal S1 S2, No gallops, No rubs, No murmurs Capillary refill: <2 Seconds Gastrointestinal: Normal bowel sounds, Soft and benign, No ascites, No tenderness, No masses, No rebound, No guarding Musculoskeletal: No clubbing, No swelling, No contractures, No erythema, No tenderness, No warmth Integumentary: Other (Multiple small open wounds bilateral lower extremities.) Neurological: Normal speech, Normal tone, Normal reflexes 2+, Other (Alzheimer's disease.) Lymphatics: No axilla or inguinal lymphadenopathy - Studies Laboratory Data (last 24 hrs) 04/25/25 04/25/25 04/25/25 00:00 00:00 00:00 WBC 12.00 H Hgb 15.7 H Hct 45.6 H Plt Count 187 PT 11.1 INR 0.98 APTT 28.2 Sodium 134 L Potassium 3.5 BUN 26 H Creatinine 0.76 Glucose 215 H Total Bilirubin 0.4 AST 16 ALT 19 Alkaline Phosphatase 134 H Female Exam - Breasts Breasts: Normal configuration Assessment and Plan - Plan Patient is a 74-year-old female admitted to inpatient with diagnosis of new onset CHF, AHRF secondary to community-acquired pneumonia with WBC of 12, left shift, initial lactic acid 5.0, with no fever, chills, blood pressure normotensive at this time. (1)New onset CHF. Patient BNP 5949, nonproductive cough, no prior history of CHF according to . Chest x-ray impression of marked congestive heart failure. -Lasix 20 mg IV daily. -Order echocardiogram. -Consult rotary engraver. Will defer any further cardiac medications to rotary engraver. -Telemetry. -Daily weight. (2) Sepsis 2/2 Community-acquired pneumonia/AHRF. Chest x-ray impression-bilate ral interstitial infiltrates. WBC 12.0 with a left shift, initial lactic 5.0.. -Ceftriaxone 1 g IV daily. Received initial dose in ER. -Azithromycin 500 mg IV daily. Received initial dose in ER. -NS 500 bolus, follow with NS 50 mL/ hr x 1 L. Cautious with intravenous fluid infusion due to patient new onset CHF. -Consult quality consultant Dr. Roberto. -DuoNeb nebulizer every 6 hours as needed. -Oxygen supplement to be titrated to maintain O2 saturation above 95%. -Order ABG. - Order for repeat lactic acid (3)Chronic alcohol use disorder. According to patient , he states they have been drinking alcohol for so many years. States patient currently mostly drinks boost, but has to be diluted with alcohol whiskey. Patient was tremulous on admission assessment, it is very difficult to determine if it is more related to alcohol or chronic condition, patient was not clear responding to the question on patient tremors. -Thiamine 100 mg p.o. daily. -Folic acid 1 mg p.o. daily. - CIWA score for condition change, or sign of alcohol withdrawal. -Ativan 1 mg p.o. as needed twice daily for anxiety. May need to be optimize if necessary. (4)Chronic Alzheimer's. -Continue home medication Aricept 5 mg p.o. daily. (5)Explained the entire treatment plan to the patient/, solicit questions answered and voiced understanding by patient . Discharge Plan: Home - Advance Directives Does patient have a Living Will: No Does patient have a Durable POA for Healthcare: No - Code Status/Comfort Care Code Status Assessed: Yes Code Status: Full Code Critical Care: No Time Spent Managing Pts Care (In Minutes): 55
[2025-04-25] MEDS ORDERED: ALBUTEROL 2.5 MG/3 ML NEB SOL NEB PRN (03:49)
[2025-04-25 04:20] LABS: Arterial Blood Carboxyhemoglob 1.6 % (0.0-1.5); Blood Gas Oxyhemoglobin 96.2 % (94.0-97.0); Blood O2 Saturation 98.7 % (92.0-98.5)
[2025-04-25] MEDS: NA CHLORIDE 0.9% 500 ML IV ONE (04:20)
[2025-04-25] MEDS ORDERED: NA CHLORIDE 0.9% 500 ML ONE (04:28)
[2025-04-25 04:56] VITALS: BMI 22.6
[2025-04-25] MEDS ORDERED: NA CHLORIDE 0.9% 1,000 ML ONE (05:00)
[2025-04-25] MEDS: NA CHLORIDE 0.9% 1,000 ML IV SCH (05:04)
[2025-04-25] MEDS ORDERED: LORAZEPAM 0.5 MG TABLET ONE (05:36)
[2025-04-25] MEDS: LORAZEPAM 0.5 MG TABLET PO PRN (05:54)
--- NOTE | 2025-04-25 06:41 | RAD REPORT ---
EXAM DESCRIPTION: Chest Single View CLINICAL HISTORY: 74 years Female Cough;Dyspnea COMPARISON: None TECHNIQUE: AP view of the chest was obtained. FINDINGS: Cardiac silhouette is enlarged. Central vessels are moderately to markedly increased. No effusion on right. Small left pleural effusion. Diffuse bilateral interstitial and airspace opacit ies. Calcified granuloma left lung base. Additional granulomatous change on the right. IMPRESSION: Enlarged heart with moderate to marked congestive heart failure. Bilateral interstitial infiltrates. Prior granulomatous disease. Electronically signed by: Roxana Huynh MD 04/25/2025 01:33 AM CDT Due to temporary technical issues with the PACS/[employer] reporting system, reports are being maynor d by the in-house radiologist without review as a courtesy to ensure prompt reporting the interpreting radiologist is fully responsible for the content of the report. Transcribed Date/Time: 04/25/2025 6:41 AM
[2025-04-25] MEDS ORDERED: FOLIC ACID 1 MG TABLET ONE (08:15)
[2025-04-25] MEDS ORDERED: IPRATROPIUM BROM 0.5MG/2.5ML ONE (08:16)
[2025-04-25] MEDS ORDERED: THIAMINE HCL 100 MG TABLET ONE (08:16)
[2025-04-25] MEDS: FOLIC ACID 1 MG TABLET PO SCH (08:28)
[2025-04-25] MEDS: FUROSEMIDE 20 MG/ 2ML VIAL IV SCH (08:28)
[2025-04-25] MEDS: THIAMINE HCL 100 MG TABLET PO SCH (08:28)
[2025-04-25] MEDS: IPRATROPIUM BROM 0.5MG/2.5ML NEB SCH (08:30)
[2025-04-25] MEDS: PNEUMOCOCCAL VACCINE 0.5 ML IMVAC ONE (09:00)
[2025-04-25 09:18] LABS: Absolute Lymphocytes (CBC) 0.4 K/uL (0.7-4.9); Hematocrit 44.7 % (36.0-45.0); Hemoglobin 15.4 g/dL (12.0-15.0); MCH 34.4 pg (27.0-35.0); MCHC 34.5 g/dL (32.0-36.0); MCV 99.7 fL (80-100); MPV 11.4 fL (7.6-11.3); Nucleated RBC Absolute Count 0.0 (0-0); Nucleated Red Blood Cells % 0.0 % (0-0); RBC Red Blood Cell Count 4.48 M/uL (3.86-4.86); White Blood Count 10.80 thou/uL (4.3-10.9)
[2025-04-25 09:44] LABS: ALT/SGPT 16.0 U/L (13-56); AST/SGOT 21.0 U/L (15-37); Albumin 3.7 g/dL (3.4-5.0); Albumin/Globulin Ratio 1.0 (1.1-1.8); Alkaline Phosphatase 100.0 U/L (45-117); Anion Gap 12.8 mEq/L (5.0-15.0); BUN Blood Urea Nitrogen 21.0 mg/dL (7-18); Globulin 3.8 g/dL (2.3-3.5); Glucose Level 169.0 mg/dL (74-106); Magnesium 1.9 mg/dL (1.6-2.4); Potassium 3.8 mEq/L (3.5-5.1)
--- NOTE | 2025-04-25 11:29 | P.PN ---
Date of Service: 04/25/25 Subjective: feeling better dementia confused reports progressive worsening of dementia in last 2 months poor quality of life Physical Exam: GEN: Alert, orientedx2, NAD CV: V/ systolic murmur, no edema Pulm: Nonlabored respirations on room air, diminished at bases bialterally ABD: soft, nontender, nondistended Integumentary: Multiple small open wounds to BLE Neuro: Normal speech, normal affect Problem List: Acute pulm edema, concern or new onset CHF / aortic stenosis Sepsis secondary to bilateral pneumonia Acute hypoxic respiratory failure Alcohol/Tobacco use Alzheimer's disease Hypertension Acute pulm edema, concern or new onset CHF Sepsis secondary to bilateral pneumonia Acute hypoxic respiratory failure on admission, presents with worsening SOB, cough, anxiety. CXR (04/25): Enlarged heart with moderate-marked CHF. +Bilateral interstitial infiltrates. Prior granulomatous disease. Given IV steroids, IV azithromycin/Rocephin, IV lasix in ED Continue empiric Rocephin/Azithromycin (04/25-) Blood cx: Pending lactic acid 5 -> 5.6 -> 5.5; repeat pending Continue IV Lasix 20 mg daily Echo ordered to eval EF / stenosis Cardio/Pulm consults PRN nebs Alcohol/Tobacco use States she dilutes her boost/ensure drinks with whiskey. Chronic drinker for many years. Monitor for alcohol withdrawal. continue thiamine, folic acid PRN ativan as needed for withdrawal Alzheimer's disease Hypertension confirm home meds, restart as appropriate resume home aricept Time Spent Managing Pts Care (In Minutes): 55
--- NOTE | 2025-04-25 12:33 | CON ---
Date of Consultation: 04/25/2025 Reason For Consultation: Shortness of breath. History Of Present Illness: A 74-year-old female, history of dementia, hypertension, smoker, present ed to the emergency room with shortness of breath, orthopnea, lower extremity edema. Denies having a ny chest pain. No nausea, vomiting, diarrhea. Found to be in congestive heart failure. They also c laimed that she has been having some cough that is dry. Denies having any chest pain at the present time, and with diuresis, she is feeling better. Past Medical History: As outlined above in the HPI, dementia, hypertension. Medications: Refer to reconciliation sheet for detailed list. Allergies: SULFA. Family History: No premature coronary artery disease or cancer. Social History: She is an active smoker. Does not drink or use any drugs. Review of Systems: All systems reviewed and they are negative except as mentioned in the HPI. Physical Examination: Vital Signs: Reviewed. Head and Neck: Pupils are equal, reactive to light. Intact eye movements. Mild JVD elevation. Nec k is supple. Thyroid is not enlarged. Lungs: Decreased breathing sounds bilaterally. No accessory muscle use or muscle retraction. Heart: Regular rate and rhythm with late-peaking systolic ejection murmur in the aortic area. Abdomen: Soft, nontender. Bowel sounds positive. No organomegaly. No masses or hernia. No rigidi ty or rebound. Extremities: Trace edema. No clubbing, cyanosis. Intact pulses. Skin: No rash. No nodules. Neuro: Alert, awake with no acute focal deficits appreciated. Investigations: BUN 21, creatinine 1.1, and NT-proBNP is 5149. Troponin is negative. Assessment And Recommendations: 1. Acute congestive heart failure, responded very well to Lasix as she seems euvolemic now. Switch L asix to oral 40 mg daily and obtain an echo. 2. Aortic valve stenosis. She has late-peaking aortic systolic ejection murmur. Recommend an echo. Her problem could be related to severe aortic valve stenosis. 3. Smoker. She was counseled to quit. 4. Questionable sepsis, on wide-spectrum antibiotics, and the patient is clinically and hemodynamical ly appears to be stable. SR/MODL Voice ID: [id number] Report ID: [id number]
--- NOTE | 2025-04-25 17:43 | P.CNS ---
Date of Consult: 04/25/25 Reason for Consult: Respiratory distress Chief Complaint: New Onset CHF, SEPSIS 2/2 CAP/AHRF, History of Present Illness: Patient is 74 years of age with a history of Alzheimer's disease lives at home admitted from home with shortness of breath patient is a very poor historian apparently there was some nonproductive cough and she is feeling fine now no complaints alert cooperative is quite disabled from her Alzheimer's disease Allergies Sulfa (Sulfonamide Antibiotics) Allergy (Intermediate, Verified 04/25/25 04:46) Hives/Rash - Past Medical/Surgical History Diabetic: No -: Nicotine use disorder, daily cigarette smoker. -: Alcohol use disorder. -: Essential hypertension. -: Alzheimer's disease. - Social History Smoking Status: Current every day smoker Alcohol use: Yes CD- Drugs: No Caffeine use: No Place of Residence: Home Review of Systems is unable to be obtained Physical Examination Temp Pulse Resp BP Pulse Ox 97.9 F 99 H 18 127/65 95 04/25/25 16:00 04/25/25 16:00 04/25/25 16:00 04/25/25 16:00 04/25/25 16:00 General: Alert Respiratory: Clear to auscultation bilaterally Cardiovascular: No edema, Regular rate/rhythm, Normal S1 S2, Systolic murmur Laboratory Data (last 24 hrs) 04/25/25 04/25/25 04/25/25 00:00 00:00 00:00 WBC 12.00 H Hgb 15.7 H Hct 45.6 H Plt Count 187 PT 11.1 INR 0.98 APTT 28.2 Sodium 134 L Potassium 3.5 BUN 26 H Creatinine 0.76 Glucose 215 H Total Bilirubin 0.4 AST 16 ALT 19 Alkaline Phosphatase 134 H - Problems (1) Respiratory distress Current Visit: Yes Status: Acute Plan: Patient is 74 years of age with end-stage Alzheimer's disease admitted with acute respiratory distress most likely new onset of heart failure BNP was significantly elevated no evidence of sepsis chest x-ray consistent with congestive heart failure no evidence of pneumonia patient seems to have recovered oxygenation satisfactory continue with low-dose Lasix echocardiogram pending DC antibiotics has a systolic murmur possibly underlying aortic stenosis also current everyday smoker may have have underlying obstructive airways disease recommend long-acting bronchodilators for home use history of chronic alcohol use
[2025-04-25] MEDS ORDERED: CEFTRIAXONE 1,000 MG in NA CHLORIDE 0.9% 50 ML IVPB SCH (20:00)
[2025-04-25] MEDS: ARFORMOTEROL TARTRATE 15 MCG/2 ML VIAL.NEB NEB SCH (20:00)
[2025-04-25] MEDS: DONEPEZIL HCL 5 MG TAB PO SCH (20:39)
[2025-04-25] MEDS ORDERED: AZITHROMYCIN IV 500 MG in NA CHLORIDE 0.9% 250 ML IVPB SCH (21:00)
[2025-04-26] MEDS: LORazepam 2 MG/ML VIAL IV ONE ×2 (00:01→10:48)
[2025-04-26] MEDS: ONDANSETRON 4 MG/2 ML VIAL IV PRN (00:01)
[2025-04-26 07:04] LABS: Absolute Lymphocytes (CBC) 1.3 K/uL (0.7-4.9); Hematocrit 42.4 % (36.0-45.0); Hemoglobin 14.5 g/dL (12.0-15.0); MCH 34.1 pg (27.0-35.0); MCHC 34.2 g/dL (32.0-36.0); MCV 99.5 fL (80-100); MPV 11.2 fL (7.6-11.3); Nucleated RBC Absolute Count 0.0 (0-0); Nucleated Red Blood Cells % 0.1 % (0-0); RBC Red Blood Cell Count 4.26 M/uL (3.86-4.86); White Blood Count 11.60 thou/uL (4.3-10.9)
[2025-04-26 07:28] LABS: ALT/SGPT 18.0 U/L (13-56); AST/SGOT 21.0 U/L (15-37); Albumin 3.3 g/dL (3.4-5.0); Albumin/Globulin Ratio 1.0 (1.1-1.8); Alkaline Phosphatase 67.0 U/L (45-117); Anion Gap 10.8 mEq/L (5.0-15.0); BUN Blood Urea Nitrogen 15.0 mg/dL (7-18); Globulin 3.3 g/dL (2.3-3.5); Glucose Level 96.0 mg/dL (74-106); Magnesium 2.3 mg/dL (1.6-2.4); NT PRO-BNP 13123.0 pg/mL (<450); Potassium 3.8 mEq/L (3.5-5.1)
--- NOTE | 2025-04-26 08:44 | P.PN ---
Date of Service: 04/26/25 Subjective: family updated at bedside discussed goals of cares at length with family would like to pursue hospice at this time patient was agitated last night - vs etoh withdrawal Physical Exam: GEN: Alert, orientedx2, NAD CV: V/ systolic murmur, no edema Pulm: Nonlabored respirations on room air, diminished at bases bialterally ABD: soft, nontender, nondistended Integumentary: Multiple small open wounds to BLE Neuro: Normal speech, normal affect Problem List: New onset CHF / Severe Critical AoS / Severe Mitral Stenosis Acute hypoxic respiratory failure lactic acidosis Alcohol/Tobacco use Alzheimer's disease Hypertension New onset CHF / Severe Critical AoS / Severe Mitral Stenosis Acute hypoxic respiratory failure lactic acidosis on admission, presents with worsening SOB, cough, anxiety. CXR (04/25): Enlarged heart with moderate-marked CHF. +Bilateral interstitial infiltrates. Prior granulomatous disease. Discussed with Dr. Glasgow - echo notes severe critical AoS - with mean gradient: ~80mmHg, with severe AI also with severe Mitral Stenosis would need double valve replacement Discussed with - regarding potential transfer to CT surgery to eval. reports patient's dementia has progressed quite a bit in last 2-3 months she does not have much memory of new things anymore. does not want to ambulate much at home DNR confirmed with . 04/26 Family updated at bedside. Discussed goals of cares at length with family in room. statement services representative consulted for hospice Alcohol/Tobacco use States she dilutes her boost/ensure drinks with whiskey. Chronic drinker for many years. Monitor for alcohol withdrawal. continue thiamine, folic acid PRN ativan as needed for withdrawal Alzheimer's disease Hypertension confirm home meds, restart as appropriate resume home aricept Dispo: Likely Hospice 04/26 Family updated at bedside. Discussed goals of cares at length with family in room. Family agreeable to hospice as it would be most in line with patients wishes. Time Spent Managing Pts Care (In Minutes): 45
[2025-04-26] MEDS: LORazepam 2 MG/ML VIAL IV PRN (11:05)
--- NOTE | 2025-04-26 21:03 | PN ---
Date of Progress Note: 04/26/2025 Subjective: Seen by bedside. She is feeling well. No shortness of breath. Review of Systems: No chest pain, shortness of breath, orthopnea, cough. No nausea, vomiting, diarrhea. All other syst ems reviewed are negative. Objective: Vital Signs: Reviewed. Head and Neck: Pupils are equal, reactive to light. Intact eye movements. Mild JVD elevation. Nec k is supple. Thyroid is not enlarged. Lungs: Clear to auscultation bilaterally. No rhonchi, wheezing, or crackles. No accessory muscle u se. Heart: Regular rate and rhythm with late-peaking aortic ejection systolic murmur. Abdomen: Soft, nontender. Bowel sounds positive. No organomegaly. No masses or hernia. No rigidi ty or rebound. Extremities: No clubbing, cyanosis. Intact pulses. Skin: No rash. No nodules. Neuro: Alert, awake, oriented x3. No acute focal deficits appreciated. Investigations: Labs were reviewed. BUN 15, creatinine 0.66. Assessment/recommendation: 1. Acute congestive heart failure exacerbation due to severe diastolic dysfunction. However, heart i s severely enlarged with very small cavity, careful diuresis on as-needed basis and strict low-salt d iet is recommended. 2. Critical aortic valve stenosis, very high gradient likely the cause of her morphological changes o n her heart with severe LVH and advanced damage and also has severe mitral valve stenosis. This patie nt will need aortic and mitral valve replaced. However, she has advanced dementia apparently and hus band and family wanted to go with conservative measures and hospice care, which I feel is reasonable due to the advanced dementia. 3. MR severe as well heavily calcified valve. I recommended transfer for CT Surgery evaluation, claire lucero, as outlined above family are leaning towards hospice care and due to significant dementia and I think it is reasonable to treat the patient medically. A long discussion with the patient's and the primary hospitalist such since the patient is moving towards hospice. Cardiology will sign o ff. SR/MODL Voice ID: [id number] Report ID: [id number]
[2025-04-27 06:18] LABS: Absolute Lymphocytes (CBC) 1.7 K/uL (0.7-4.9); Hematocrit 45.2 % (36.0-45.0); Hemoglobin 15.2 g/dL (12.0-15.0); MCH 33.8 pg (27.0-35.0); MCHC 33.6 g/dL (32.0-36.0); MCV 100.6 fL (80-100); MPV 11.2 fL (7.6-11.3); Nucleated RBC Absolute Count 0.0 (0-0); Nucleated Red Blood Cells % 0.1 % (0-0); RBC Red Blood Cell Count 4.49 M/uL (3.86-4.86); White Blood Count 7.30 thou/uL (4.3-10.9)
[2025-04-27 06:57] LABS: ALT/SGPT 18.0 U/L (13-56); AST/SGOT 23.0 U/L (15-37); Albumin 3.1 g/dL (3.4-5.0); Albumin/Globulin Ratio 0.9 (1.1-1.8); Alkaline Phosphatase 64.0 U/L (45-117); Anion Gap 8.6 mEq/L (5.0-15.0); BUN Blood Urea Nitrogen 13.0 mg/dL (7-18); Globulin 3.3 g/dL (2.3-3.5); Glucose Level 79.0 mg/dL (74-106); Magnesium 2.4 mg/dL (1.6-2.4); NT PRO-BNP 9119.0 pg/mL (<450); Potassium 3.6 mEq/L (3.5-5.1)
[2025-04-27 09:03] VITALS: BP 107/58; TEMP 97.7
--- NOTE | 2025-04-27 09:04 | P.DS ---
Admission Date: 04/25/25 Discharge Date: 04/27/25 Disposition: HOSPICE-HOME Reason for Admission: New Onset CHF, SEPSIS 2/2 CAP/AHRF, Consultations: Cardiology - Dr. Glasgow Brief History of Present Illness: 74yo F, PMH: Alzheimer's disease, hypertension, nicotine use disorder, currently still smoking cigarettes, alcohol use disorder, Patient brought to the ER by her due to shortness of breath, nonproductive cough, and anxiety. According to patient present at bedside, he states this evening patient became very anxious with associated shortness of breath, and nonproductive cough. He states when patient is not anxious, her respiration is even and nonlabored, but when she becomes anxious, then she starts having problem breathing, which then prompted him to bring the patient to the ER. States upon arrival to ER, patient room air oxygen was 96%- 97%. Patient was then placed on 2 L of oxygen supplement. On admission assessment, patient denies of any chest pain or shortness of breath at this time, patient appears very tremulous at times, and relax at times. Patient respirations even and nonlabored on 2 L oxygen satting 100%. Patient is a very poor historian, states about 5 months ago patient was checked by one of her doctor, who found that patient has some esophageal " either spasm or stricture", but states the doctor told him that nothing can be done about it. He states from then patient has just been drinking only boost mixed with some whiskey alcohol. He states patient is just scared to eat regular food. When inquired from the why he has to dilute patient boost with alcohol, he became very defensive, states they have been drinking alcohol for so many years. Patient is not able to provide her past medical history, most of the history provided by the . Patient denies of any fever or chills at home. Denies any previous history of CHF. Patient workup in the ER concerning for new onset CHF versus community-acquired pneumonia. Patient BNP 5949, WBC 12 with a left shift, initial lactic acid 5.0, normotensive blood pressure at this time. Course in ER: (1) Chest l-xfq-[id number]- (A) enlarged heart with moderate to marked congestive heart failure. Bilateral interstitial infiltrates. Hospital Course: Problem List: New onset diastolic CHF / Severe Critical AoS / Severe Mitral Stenosis Acute hypoxic respiratory failure lactic acidosis Alcohol/Tobacco use Alzheimer's disease Hypertension Physical Exam: GEN: Alert, orientedx2, NAD CV: V/ systolic murmur, no edema Pulm: Nonlabored respirations on room air ABD: soft, nontender, nondistended Neuro: Normal speech, normal affect Vital Signs/Physical Exam: Temp Pulse Resp BP Pulse Ox 97.5 F 63 18 102/58 L 97 04/27/25 04:00 04/27/25 04:00 04/27/25 04:00 04/27/25 04:00 04/27/25 04:00 Laboratory Data at Discharge: WBC 7.30 thou/uL (4.3-10.9) 04/27/25 05:25 Hgb 15.2 g/dL (12.0-15.0) H 04/27/25 05:25 Hct 45.2 % (36.0-45.0) H 04/27/25 05:25 Plt Count 159 thou/uL (152-406) 04/27/25 05:25 PT 11.1 SECONDS (10-13.0) 04/25/25 00:00 INR 0.98 04/25/25 00:00 APTT 28.2 SECONDS (27.2-37.4) 04/25/25 00:00 Sodium 137 mEq/L (136-145) D 04/27/25 05:25 Potassium 3.6 mEq/L (3.5-5.1) 04/27/25 05:25 BUN 13 mg/dL (7-18) 04/27/25 05:25 Creatinine 0.64 mg/dL (0.55-1.02) 04/27/25 05:25 Glucose 79 mg/dL (74-106) 04/27/25 05:25 Magnesium 2.4 mg/dL (1.6-2.4) 04/27/25 05:25 Total Bilirubin 0.9 mg/dL (0.2-1.0) 04/27/25 05:25 AST 23 U/L (15-37) 04/27/25 05:25 ALT 18 U/L (13-56) 04/27/25 05:25 Alkaline Phosphatase 64 U/L (45-117) 04/27/25 05:25 Physician Discharge Instructions: Physician discharge instructions: Patient presented with worsening SOB, cough, anxiety secondary to new onset CHF, severe aortic critical stenosis, severe mitral stenosis. Chest xray on admission noted an enlarged heart with moderate-marked CHF, bilateral interstitial infiltrates, prior granulomatous disease. Cardiology was consulted and recommended echocardiogram to further evaluate. Discussed with Dr. Glasgow (cardiology) who reports echo showed severe critical AoS with mean gradient: ~80mmHg, with severe aortic insufficiency and severe mitral valve stenossi which would require double valve replacement to treat accordingly. Discussed at length with patient and family in room regarding potential transfer for emergent CT surgery evaluation. Her reports patient's dementia has progressed quite a bit in the last 2- 3 months and she has been demonstrating worsening strength, endurance associated with some increased memory issues. Given her progressive dementia, worsening quality of life, failure to thrive, family have opted to pursue home hospice services as this would be most in line with patients wishes. Medications: Lasix 20 mg as needed for lower extremity swelling. Check weights around the same time each day. If you notice > 2 lb weight gain or more, take lasix. Trazodone 50 mg at bedtime Followup: JESSICA VARGHESE MD [Primary Care Provider] - Time spent managing pt's care (in minutes): 45
[2025-04-27 10:52] VITALS: O2SAT 98
--- NOTE | 2025-04-28 07:54 | ECHO ---
HEIGHT: 5 ft 3 in WEIGHT: 128 lb 0.006 oz DATE OF STUDY: 04/25/[address]: Javier Glasgow 2-DIMENSIONAL: YES M.MODE: YES DOPPLER: YES COLOR FLOW: YES TDS: YES PORTABLE: YES DEFINITY: NO BUBBLE STUDY: NO DIAGNOSIS: CONGESTIVE HEART FAILURE CARDIAC HISTORY: CATHERIZATION: SURGERY: PROSTHETIC VALVE: PACEMAKER: MEASUREMENTS (cm) DIASTOLIC (NORMALS) SYSTOLIC (NORMALS) IVSd 1.1 (0.6-1.2) LA Diam 5.2 (1.9-4.0) LVEF 74% LVIDd 5.2 (3.5-5.7) LVIDs 2.9 (2.0-3.5) %FS 43% LVPWd 1.2 (0.6-1.2) Ao Diam 3.2 (2.0-3.7) 2 DIMENSIONAL ASSESSMENT: RIGHT ATRIUM: NORMAL LEFT ATRIUM: ENLARGED RIGHT VENTRICLE: NORMAL LEFT VENTRICLE: SEVERE LEFT VENTRICULAR HYPERTROPHY TRICUSPID VALVE: MILD TRICUSPID REGURGITATION MITRAL VALVE: HEAVILY CALCIFIED PULMONIC VALVE: NOT SEEN AORTIC VALVE: HEAVILY CALCIFIED PERICARDIAL EFFUSION: NONE AORTIC ROOT: NORMAL LEFT VENTRICULAR WALL MOTION: NORMAL. DOPPLER/COLOR FLOW: SEE BELOW. COMMENTS: 1. NORMAL LEFT VENTRICULAR EJECTION FRACTION GREATER THAN 60% WITH NORMAL WALL MOTION. 2. SEVERE CONCENTRIC LEFT VENTRICULAR HYPERTROPHY. 3. HEAVILY CALCIFIED AORTIC VALVE WITH CRITICAL AORTIC STENOSIS WITH MEAN GRADIENT OF 80mmHg. 4. HEAVILY CALCIFIED MITRAL VALVE WITH SEVERE MITRAL STENOSIS, GRADIENT GREATER THAN 14mmHg. 5. SEVERELY ENLARGED LEFT ATRIUM. 6. SEVERE AORTIC INSUFFICIENCY. TECHNOLOGIST: NAOMY PINEDA
== END 2025-04-27 12:17 | disposition hospice, home (50) | DRG 291 ==
LOC: ER 23:54 → ERHOLD 04-25 03:27 → 2ND 04-25 09:10
PROVIDERS: ADMIT Hospitalist; ATTEND Hospitalist
DX: I11.0 Hypertensive heart disease with heart failure (principal); I50.31 Acute diastolic (congestive) heart failure; Z66 Do not resuscitate; J18.9 Pneumonia, unspecified organism; J96.01 Acute respiratory failure with hypoxia; F17.210 Nicotine dependence, cigarettes, uncomplicated; Z88.2 Allergy status to sulfonamides; Z79.82 Long term (current) use of aspirin; I10 Essential (primary) hypertension; G30.9 Alzheimer's disease, unspecified; F02.80 Dementia in other diseases classified elsewhere, unspecified severity, without behavioral disturbance, psychotic disturbance, mood disturbance, and anxiety; F41.9 Anxiety disorder, unspecified; Z72.0 Tobacco use; F10.90 Alcohol use, unspecified, uncomplicated; I08.0 Rheumatic disorders of both mitral and aortic valves; Z11.52 Encounter for screening for COVID-19
CPT/HCPCS: 36415; 36600; 71045; 80053; 82805; 83605; 83615; 83735; 83880; 84484; 85025; 85379; 85610; 85730; 87040; 87428; 93005; 93306; 94640; 94760; 96365; 96375; 99285; J0456; J0696; J1938; J2405; J2919; J7030; J7040; J7050; J7605; J7614; J7644